=== PATIENT | female | born 1995 | race Caucasian/White ===

== ENCOUNTER → 2017-04-03 | Outpatient (CLI) | payer OTHER ==
[~2017-04-03] MED LIST: AMXSUNK; CLR10 PO; MULT-506 PO
[2017-04-03 16:17] LABS: BASO % 0.7 %; BASO ABS # 0.05 K/uL (0-0.2); EOS % 1.9 %; EOS ABS # 0.13 K/uL (0-0.5); HEMATOCRIT 41.6 % (37-47); HEMOGLOBIN 14.3 g/dL (12.0-16.0); IG# 0.01 K/uL (0.00-0.02); LYMPH % 22.7 %; LYMPH ABS # 1.55 K/uL (1.2-3.4); MEAN CELL VOLUME 86.1 fL (80-100); MEAN CORPUSCULAR HEMOGLOBIN 29.6 pg (25-34); MEAN CORPUSCULAR HGB CONC 34.4 g/dl (32-36); MEAN PLATELET VOLUME 11.1 fL (7.4-10.4); MONO % 8.2 %; MONO ABS # 0.56 K/uL (0.11-0.59); NEUT % 66.4 %; NEUT ABS # 4.52 K/uL (1.4-6.5); PLATELET COUNT 281 K/uL (130-400); RED CELL DISTRIBUTION WIDTH CV 12.2 % (11.5-14.5); RED CELL DISTRIBUTION WIDTH SD 38.5 fL (36.4-46.3); WHITE BLOOD COUNT 6.82 K/uL (4.8-10.8)
[2017-04-03 16:26] LABS: BLOOD UREA NITROGEN 14 mg/dl (7-18); CALCIUM 8.8 mg/dl (8.5-10.1); CARBON DIOXIDE 27 mmol/L (21-32); CREATININE 0.87 mg/dl (0.60-1.20); GLUCOSE 81 mg/dl (70-99); POTASSIUM 3.7 mmol/L (3.5-5.1); SODIUM 139 mmol/L (136-145)
[2017-04-03 16:35] LABS: LUTEINIZING HORMONE 6.51 IU/L
[2017-04-03 16:36] LABS: FOLLICLE STIMULAT HORMONE 2.37 IU/L
== END | disposition home or self-care (01) ==
LOC: C.LAB 14:52
PROVIDERS: ATTEND Family Medicine
DX: N93.9 Abnormal uterine and vaginal bleeding, unspecified (principal); L68.0 Hirsutism; R25.1 Tremor, unspecified

== ENCOUNTER 2017-07-30 15:03 | Emergency (ER) | payer OTHER ==
[~2017-07-30] VITALS: Ht 158.8 cm; Wt 58.4 kg
[2017-07-30 15:09] VITALS: TEMP 36.7; Ht 158.8 cm; Wt 58.4 kg
[2017-07-30 15:40] VITALS: O2SAT 99
--- NOTE | 2017-07-30 16:00 | EMERGENCY ROOM VISIT NOTE ---
History Report prepared by Doreen: Brenda Haji Under the Supervision of: Dr. Darren Saenz M.D. First contact with patient: 15:25 Chief Complaint: SYNCOPE Stated Complaint: PASSED OUT Nursing Triage Summary: Patient ambulatory to triage with an upright and steady gait, states "I don't know why but the left side of my head tends to hurt a lot. I passed out twice today. I didn't really know I was passing out. I went to bed really late...like 0730 am. I slept til 1300 or so. I took a shower and started feeling crappy. I started blanking out because I was thinking about blood. My heart felt like it was beating really slow. I screamed for my dad. I don't remember much after that." Father reports that she was sitting on the steps when he got to her. She layed down and "passed out with her eyes wide open." She did that a second time. First episode was 30 seconds; second episode was 45 seconds. Patient has not eaten at all today. Patient came back into triage after her parents stepped out. Patient states "My period started last ThursdayJuly 20. I had sex and decided to take Plan B on Thursday. This morning, my period picked up again. I am bleeding a lot more than I normally do." History of Present Illness The patient is a 22 year old white female with a past medical history of anxiety who presents to the ED with a cc of an episode of syncope beginning 1429. Her father states she was unresponsive with her eyes open for 30-40 seconds. She came to and then became unresponsive again for around 45 seconds. Positive slow heart rate, LLQ abdominal pain. Negative lightheadedness, SOB, cough, fever, chills, numbness, weakness, fall, leg pain, vision change, hearing change. Her menstrual period started last week and is lasting longer than normal. No regular drug or tobacco use. Source of History: patient, parent Onset: 1429 Position: head Quality: other (syncope) Timing: other (episodic) Associated Symptoms: No fevers, No chills, No cough, No SOB, No weakness, No numbness Review of Systems See HPI for pertinent positives and negatives. A total of ten systems were reviewed and were otherwise negative. Past Medical & Surgical Medical Problems: (1) Anxiety Family History Cancer FHx: gallbladder disease Heart disease Hypertension Social History Smoking Status: Never Smoker Housing Status: lives with family Occupation Status: [employer] student Current/Historical Medications No Active Prescriptions or Reported Meds Allergies Coded Allergies: No Known Allergies (Unverified , 07/30/17) Physical Exam Vital Signs Date Time Temp Pulse Resp B/P (MAP) Pulse Ox O2 Delivery O2 Flow Rate FiO2 07/30/17 17:35 78 18 121/69 100 07/30/17 16:34 95 07/30/17 15:48 103 24 112/60 100 Room Air 07/30/17 15:40 99 Room Air 07/30/17 15:09 36.7 82 16 130/76 100 Room Air Physical Exam GENERAL: Awake, alert, well-appearing, NAD HENT: Normocephalic, atraumatic. EYES: Normal conjunctiva. Sclera non-icteric. PERRL. No anisocoria. NECK: Supple. No nuchal rigidity. FROM. RESPIRATORY: CTAB, no rhonchi, wheezing, crackles CARDIAC: RRR, no MRG ABDOMEN: Soft, NTND, BS+ MSK: No chest wall TTP, no LE edema NEURO: GCS 15, CN 2-12 intact, moves all 4s on command SKIN: No rash or jaundice noted. Medical Decision & Procedures ER Provider Diagnostic Interpretation: Radiology results as stated below per my review and radiologist interpretation: CHEST ONE VIEW PORTABLE CLINICAL HISTORY: 22 years-old Female presenting with syncope. TECHNIQUE: Portable upright AP view of the chest was obtained. COMPARISON: None. FINDINGS: Cardiomediastinal silhouette normal. No focal opacity. No large effusion or pneumothorax. Osseous structures normal. Upper abdomen normal. IMPRESSION: 1. No acute cardiopulmonary disease. Electronically signed by: Jose Elias Antoine M.D. 07/30/2017 4:03 PM Dictated Date/Time: 07/30/2017 4:03 PM Laboratory Results 07/30/17 15:50 Red Blood Count 4.88, Mean Corpuscular Volume 85.7, Mean Corpuscular Hemoglobin 30.9, Mean Corpuscular Hemoglobin Concent 36.1, Mean Platelet Volume 10.3, Neutrophils (%) (Auto) 64.0, Lymphocytes (%) (Auto) 27.8, Monocytes (%) (Auto) 5.8, Eosinophils (%) (Auto) 1.8, Basophils (%) (Auto) 0.6, Neutrophils # (Auto) 3.17, Lymphocytes # (Auto) 1.38, Monocytes # (Auto) 0.29, Eosinophils # (Auto) 0.09, Basophils # (Auto) 0.03 07/30/17 15:50 Test 07/30/17 15:14 07/30/17 15:50 07/30/17 16:10 Bedside Glucose 96 mg/dl (70-90) White Blood Count 4.96 K/uL (4.8-10.8) Red Blood Count 4.88 M/uL (4.2-5.4) Hemoglobin 15.1 g/dL (12.0-16.0) Hematocrit 41.8 % (37-47) Mean Corpuscular Volume 85.7 fL (80-100) Mean Corpuscular Hemoglobin 30.9 pg (25-34) Mean Corpuscular Hemoglobin Concent 36.1 g/dl (32-36) Platelet Count 248 K/uL (130-400) Mean Platelet Volume 10.3 fL (7.4-10.4) Neutrophils (%) (Auto) 64.0 % Lymphocytes (%) (Auto) 27.8 % Monocytes (%) (Auto) 5.8 % Eosinophils (%) (Auto) 1.8 % Basophils (%) (Auto) 0.6 % Neutrophils # (Auto) 3.17 K/uL (1.4-6.5) Lymphocytes # (Auto) 1.38 K/uL (1.2-3.4) Monocytes # (Auto) 0.29 K/uL (0.11-0.59) Eosinophils # (Auto) 0.09 K/uL (0-0.5) Basophils # (Auto) 0.03 K/uL (0-0.2) RDW Standard Deviation 38.4 fL (36.4-46.3) RDW Coefficient of Variation 12.3 % (11.5-14.5) Immature Granulocyte % (Auto) 0.0 % Immature Granulocyte # (Auto) 0.00 K/uL (0.00-0.02) Anion Gap 6.0 mmol/L (3-11) Est Creatinine Clear Calc Drug Dose 79.0 ml/min Estimated GFR () 103.9 Estimated GFR (Non- 89.6 BUN/Creatinine Ratio 14.0 (10-20) Calcium Level 8.9 mg/dl (8.5-10.1) Urine Color YELLOW Urine Appearance CLOUDY (CLEAR) Urine pH 8.0 (4.5-7.5) Urine Specific [place] 1.016 (1.000-1.030) Urine Protein NEG (NEG) Urine Glucose (UA) NEG (NEG) Urine Ketones NEG (NEG) Urine Occult Blood 3+ (NEG) Urine Nitrite NEG (NEG) Urine Bilirubin NEG (NEG) Urine Urobilinogen NEG (NEG) Urine Leukocyte Esterase NEG (NEG) Urine WBC (Auto) 1-5 /hpf (0-5) Urine RBC (Auto) 0-4 /hpf (0-4) Urine Hyaline Casts (Auto) 1-5 /lpf (0-5) Urine Epithelial Cells (Auto) 20-30 /lpf (0-5) Urine Bacteria (Auto) NEG (NEG) Urine Yeast (Auto) (NONE PRSENT) Urine Test NEG (NEG) Laboratory results reviewed by me ECG Per My Interpretation Indication: syncope Rate (beats per minute): 84 Rhythm: normal sinus Findings: no ectopy, other (normal intervals, normal axis, no STS changes or TWI) ED Course 153: The patient was evaluated in room C3. A complete history and physical exam was performed. 1650: I reevaluated the patient. Discussed results and discharge instructions: She verbalized understanding and agreement. The patient is ready for discharge. Medical Decision Nursing notes reviewed. Ancillary studies and prior records reviewed. The patient is a 22 year old white female with a past medical history of anxiety who presents to the ED with a cc of an episode of syncope beginning 1430. Differential diagnosis: Etiologies such as vasovagal event, seizure, infection, hypoglycemia, electrolyte abnormalities, cardiac sources, intracerebral event, toxicologic, neurologic, as well as others were entertained. Patient was seen and evaluated the bedside. Patient had a questionable syncopal episode earlier today 3. Patient does not have any confusion afterward no evidence of incontinence or tongue biting. Less likely seizure however we did discuss the possibility. The patient did stay up fairly late last evening up until 730 this morning. Patient has had some recent stress she recently broke up with her boyfriend. Patient also did complain of some mildly prolonged vaginal bleeding. Patient did blood work completed, EKG, chest x-ray, urinalysis, and urine test. Patient's UPT is negative. With stress likely prolonged menstrual bleeding. Patient's H&H is normal. White blood cell count within normal limits. Patient's EKG does not show overt arrhythmia less likely arrhythmia however EKG is somewhat static and was not obtained at the time of the event. Patient has a nonfocal neurologic exam I do not believe that she requires CT the brain. Patient denies any chest pain or shortness of breath. I do not believe she requires further workup given her fairly unremarkable EKG and negative chest x-ray. Patient was informed of all findings. Patient was counseled on making sure that she hydrates well and eats regularly as well as an improved sleep regimen. Patient was given strict follow-up, discharge, and return precautions. All questions were answered. Patient was deemed suitable for outpatient follow-up at this time. Patient agreed with the plan of care and was safely discharged home. Medication Reconcilliation Current Medication List: was personally reviewed by me Blood Pressure Screening Patient's blood pressure: Normal blood pressure Blood pressure disposition: Did not require urgent referral Impression Primary Impression: Syncope Scribe Attestation The scribe's documentation has been prepared under my direction and personally reviewed by me in its entirety. I confirm that the note above accurately reflects all work, treatment, procedures, and medical decision making performed by me. Departure Information Dispostion Home / Self-Care Prescriptions No Active Prescriptions or Reported Meds Referrals Lory Begum MD (PCP) Patient Instructions Fainting (Syncope) - [facility], My [facility] Additional Instructions Please return to the emergency department if you have worsening or recurrent symptoms not amenable to at-home treatment. Please call for a follow-up appointment with her primary care physician. Please take your medications as prescribed. If you have other concerns and/or complaints please feel free to also call your primary care physician's office or return the ED for further evaluation, management, and treatment. Take your medications as prescribed. You have been examined and treated today on an emergency basis only. This is not a substitute for, or an effort to provide, complete comprehensive medical care. It is impossible to recognize and treat all injuries or illnesses in a single emergency department visit. It is therefore important that you follow up closely with [facility], your PCP, and/or your specialist(s). Call as soon as possible for an appointment. Thank you for your time and consideration. I look forward to speaking with you again soon. Please don't hesitate to call us if you have any questions. Problem Qualifiers Primary Impression: Syncope Syncope type: unspecified Qualified Codes: R55 - Syncope and collapse
[2017-07-30 16:02] LABS: BASO % 0.6 %; BASO ABS # 0.03 K/uL (0-0.2); EOS % 1.8 %; EOS ABS # 0.09 K/uL (0-0.5); HEMATOCRIT 41.8 % (37-47); HEMOGLOBIN 15.1 g/dL (12.0-16.0); LYMPH % 27.8 %; LYMPH ABS # 1.38 K/uL (1.2-3.4); MEAN CELL VOLUME 85.7 fL (80-100); MEAN CORPUSCULAR HEMOGLOBIN 30.9 pg (25-34); MEAN CORPUSCULAR HGB CONC 36.1 g/dl (32-36); MEAN PLATELET VOLUME 10.3 fL (7.4-10.4); MONO % 5.8 %; MONO ABS # 0.29 K/uL (0.11-0.59); NEUT ABS # 3.17 K/uL (1.4-6.5); PLATELET COUNT 248 K/uL (130-400); RED CELL DISTRIBUTION WIDTH CV 12.3 % (11.5-14.5); RED CELL DISTRIBUTION WIDTH SD 38.4 fL (36.4-46.3); WHITE BLOOD COUNT 4.96 K/uL (4.8-10.8)
--- NOTE | 2017-07-30 16:04 | DIAGNOSTIC IMAGING REPORT ---
CHEST ONE VIEW PORTABLE CLINICAL HISTORY: 22 years-old Female presenting with syncope. TECHNIQUE: Portable upright AP view of the chest was obtained. COMPARISON: None. FINDINGS: Cardiomediastinal silhouette normal. No focal opacity. No large effusion or pneumothorax. Osseous structures normal. Upper abdomen normal. IMPRESSION: 1. No acute cardiopulmonary disease. Electronically signed by: Jose Elias Antoine M.D. 07/30/2017 4:03 PM Dictated Date/Time: 07/30/2017 4:03 PM
[2017-07-30 16:23] LABS: CALCIUM 8.9 mg/dl (8.5-10.1); CREATININE 0.92 mg/dl (0.60-1.20); POTASSIUM 4.2 mmol/L (3.5-5.1)
[2017-07-30 17:35] VITALS: BP 121/69; PULSE 78; O2SAT 100
== END 2017-07-30 17:39 | disposition home or self-care (01) ==
LOC: C.EDB 15:04 → C.EDC 17:39
DX: R55 Syncope and collapse (principal)